=== PATIENT | female | born 1970 | race Caucasian/White ===

== ENCOUNTER 2021-09-26 09:34 | Emergency (ER) | payer OTHER ==
[~2021-09-26] VITALS: Ht 172.7 cm; Wt 108.9 kg
[2021-09-26 10:19] LABS: HEMOGLOBIN 14.2 gm/dl (12.3-15.3); RED BLOOD COUNT 5.23 M/UL (4.00-5.10); WHITE BLOOD COUNT 9.7 K/UL (4.5-11.0)
[2021-09-26 10:49] LABS: BUN/CREATININE RATIO 15 (0-10)
[2021-09-26] MEDS ORDERED: ZOFRAN ODT 4 MG4 MG PO (14:50)
== END 2021-09-26 15:00 | disposition home or self-care (01) ==
LOC: ER1 09:34
PROVIDERS: Family Medicine
DX: U07.1 COVID-19 (principal); E11.65 Type 2 diabetes mellitus with hyperglycemia; F17.200 Nicotine dependence, unspecified, uncomplicated
CPT/HCPCS: 71045; 80053; 81001; 82009; 82550; 82553; 82962; 83735; 83874; 84484; 85025; 85610; 93005; 96374; 96375; 99284; J2405; U0002